=== PATIENT | female | born 1975 | race Hispanic/Latino ===

== ENCOUNTER → 2017-11-06 | Outpatient (CLI) | payer OTHER ==
--- NOTE | 2017-11-08 12:21 | MAM ---
EXAM DESCRIPTION: 3D Screening BILATERAL : Digital Mammography. CLINICAL HISTORY: 42 years Female SCREENING . Previous mammography. [place]. No complaints. No HRT. COMPARISON: None. No prior reports available. TECHNIQUE: Bilateral CC and MLO projection full-field images, 3-D tomosynthesis digital mammographic technique. Also bilateral synthesized CC/ MLO full-field images. CAD not utilized. FINDINGS: The breast parenchymal density pattern is: Heterogeneously dense breast tissue, which may obscure small masses. No skin thickening or nipple retraction focal asymmetry in the middle third of the upper-outer quadrant of the left breast at the 230 clock position approximately 6 cm from the nipple. No mass density or calcifications noted. Focal asymmetry in the upper outer quadrant of the middle third of the right breast approximately 6 cm from the nipple and 930-1000 clock position. No definite mass density seen and no calcifications. IMPRESSION: BI-RADS CATEGORY: 0 - INCOMPLETE- Need additional imaging evaluation. FOLLOW-UP: Recall for additional imaging: Bilateral 3-D tomosynthesis full field LM images and magnification CC 2-D images of the region of interest. Bilateral targeted breast ultrasound if indicated by follow-up diagnostic images.. Written communication concerning the IMPRESSION and Follow-up, will be mailed to the patient and referring health care provider. Electronically signed by: Colten Biggs MD 11/08/2017 12:19 PM CDT
== END ==
LOC: MAMMO 10:02
PROVIDERS: ATTEND Obstetrics & Gynecology
DX: Z12.31 Encounter for screening mammogram for malignant neoplasm of breast (principal)

== ENCOUNTER → 2017-11-16 | Outpatient (CLI) | payer OTHER ==
--- NOTE | 2017-11-17 15:17 | US ---
EXAM DESCRIPTION: Breast,Bilateral: Ultrasound CLINICAL HISTORY: 42 yearsFemaleABNORMAL MAMMO COMPARISON: Digital bilateral 3-D tomosynthesis diagnostic mammographic examination on this visit. TECHNIQUE: Transcutaneous scanning of the bilateral breasts utilizing two-dimensional and Doppler modes. Scanning performed by the rotary drill rig operator and Dr. Biggs. FINDINGS: Scanning of the right breast at the 1100 clock position 5 cm from the nipple. An oval-shaped hypoechoic object is noted with minimally lobulated murphy and what appears to be a hypoechoic or anechoic extension from the mass. Long axis is 7.9 mm. Not vascular. Parallel orientation with posterior enhancement features. Nonvascular. This could represent a reactive lymph node complicated cyst, or fibroadenoma. No abnormal solid mass, no simple cyst, no large calcifications, no parenchymal edema or skin changes. Scanning of the left breast at the 200 clock position 5 cm from the nipple. Elongated hypoechoic or anechoic structure measuring 4.9 x 4.2 mm, parallel orientation and posterior acoustic enhancement. Well marginated and not vascular. This could represent a dilated duct, small cyst, or lymph node. No abnormal solid mass, discrete cyst, large calcifications, or parenchymal edema. No overlying skin changes. IMPRESSION: 1. Bi-Rads Category 3: Probably Benign Findings. 2. Please refer to bilateral 3-D tomosynthesis diagnostic mammographic examination and report on this visit. The FINDINGS and the FOLLOW-UP plan were reviewed in person with the patient after the examination. Written communication explaining the IMPRESSION and FOLLOW-UP will be mailed to the patient and referring care provider. Electronically signed by: Colten Biggs MD 11/17/2017 3:16 PM CDT
--- NOTE | 2017-11-17 15:19 | MAM ---
EXAM DESCRIPTION: 3D Diagnostic, Bilateral: Digital Mammography CLINICAL HISTORY: 42 yearsFemaleABNORMAL MAMMOGRAM . Focal asymmetry bilaterally.. COMPARISON: 3-D tomosynthesis bilateral screening mammography 11/06/2017.. Bilateral targeted breast ultrasound on this visit. Report from prior examination also reviewed. TECHNIQUE: Bilateral LM projection full-field images, 3-D tomosynthesis digital mammographic technique. Also bilateral synthesized LM full-field images. Bilateral 2-D digital magnification in the LM and CC projections. On the 2-D images CAD was utilized. FINDINGS: The breast parenchymal density pattern is: Heterogeneously dense breast tissue, which may obscure small masses. No skin thickening or nipple retraction dense fibroglandular tissues predominantly in the central breasts. 3-D LM images and magnification images show no focal asymmetry. No focal, stellate mass or density, , and no suspicious microcalcifications bilaterally. ULTRASOUND: Scanning of the right breast at the 1100 clock position 5 cm from the nipple. An oval-shaped hypoechoic object is noted with minimally lobulated murphy and what appears to be a hypoechoic or anechoic extension from the mass. Long axis is 7.9 mm. Not vascular. Parallel orientation with posterior enhancement features. Nonvascular. This could represent a reactive lymph node complicated cyst, or fibroadenoma. No abnormal solid mass, no simple cyst, no large calcifications, no parenchymal edema or skin changes. Scanning of the left breast at the 200 clock position 5 cm from the nipple. Elongated hypoechoic or anechoic structure measuring 4.9 x 4.2 mm, parallel orientation and posterior acoustic enhancement. Well marginated and not vascular. This could represent a dilated duct, small cyst, or lymph node. No abnormal solid mass, discrete cyst, large calcifications, or parenchymal edema. No overlying skin changes. IMPRESSION: BI-RADS CATEGORY: 3 - PROBABLY BENIGN. Management: Short interval (6-month) follow-up right breast digital diagnostic mammography and targeted ultrasound. The FINDINGS and the FOLLOW-UP plan were reviewed in person with the patient after the examination. Written communication explaining the IMPRESSION and FOLLOW-UP will be mailed to the patient and referring care provider. Electronically signed by: Colten Biggs MD 11/17/2017 3:18 PM CDT
== END | disposition home or self-care (01) ==
LOC: MAMMO 10:02
PROVIDERS: ATTEND Obstetrics & Gynecology
DX: R92.8 Other abnormal and inconclusive findings on diagnostic imaging of breast (principal)
CPT/HCPCS: 76641; 77066; G0279

== ENCOUNTER → 2018-05-31 | Outpatient (CLI) | payer OTHER ==
--- NOTE | 2018-06-01 16:00 | US ---
EXAM DESCRIPTION: Breast,Right: Ultrasound CLINICAL HISTORY: 43 yearsFemaleABNORMAL MAMMO COMPARISON: Digital diagnostic tomosynthesis right breast on this visit. Bilateral ultrasound targeted breast 11/16/2017. TECHNIQUE: Transcutaneous scanning of the right breast utilizing langston-scale and Doppler modes. Scanning performed by the vacuum closing machine operator and Dr. Biggs. FINDINGS: Scanning of the upper outer quadrant of the right breast. Heterogeneous fibroglandular and fatty echotexture. Emphasis on the region 5 cm from the nipple. At the 11:00 position: Mostly anechoic oval object with echogenic murphy, circumscribed margins parallel orientation, and posterior enhancement features. At the 10:00 position 5 cm from the nipple is an oval-shaped hypoechoic mass with circumscribed margins, parallel orientation and posterior enhancement features. Dimensions are 8 x 8 mm. Stable size since the prior study. No new solid mass or distinct cyst. No parenchymal edema or large calcifications. No overlying skin changes. No abnormal vascularity. IMPRESSION: 1. Bi-Rads Category 3: Probably Benign Findings. 2. Please refer to diagnostic right breast digital tomosynthesis examination and report on this visit. The FINDINGS and the FOLLOW-UP plan were reviewed in person with the patient after the examination. Written communication explaining the IMPRESSION and FOLLOW-UP will be mailed to the patient and referring care provider. Electronically signed by: Colten Biggs MD 06/01/2018 3:58 PM CDT
--- NOTE | 2018-06-04 09:28 | MAM ---
EXAM DESCRIPTION: 3D Diagnostic, Right: Digital Mammography CLINICAL HISTORY: 43 yearsFemaleABNORMAL MAMMO 6 MONTH FOLLOW UP . Focal asymmetry upper outer quadrant anterior and mid right breast and mass seen on prior ultrasound right breast. COMPARISON: bilateral screening digital breast tomosynthesis 11/06/2017. Bilateral targeted breast ultrasound 11/16/2017. Right breast targeted ultrasound on this visit included with this examination. TECHNIQUE: Right breast CC LM MLO projection full-field images, digital mammographic tomosynthesis technique. Right breast full-field 2-D MLO image. CAD not utilized. FINDINGS: The breast parenchymal density pattern is: Heterogeneously dense breast tissue, which may obscure small masses. No skin thickening or nipple retraction focal asymmetry again noted in the upper outer quadrant of the right breast. Most noticeable at the 1030 clock position. No abnormal calcifications. No new focal, stellate mass or density, focal asymmetry , and no suspicious microcalcifications right breast. ULTRASOUND: Scanning of the upper outer quadrant of the right breast. Heterogeneous fibroglandular and fatty echotexture. Emphasis on the region 5 cm from the nipple. At the 11:00 position: Mostly anechoic oval object with echogenic murphy, circumscribed margins parallel orientation, and posterior enhancement features. At the 10:00 position 5 cm from the nipple is an oval-shaped hypoechoic mass with circumscribed margins, parallel orientation and posterior enhancement features. Dimensions are 8 x 8 mm. Stable size since the prior study. No new solid mass or distinct cyst. No parenchymal edema or large calcifications. No overlying skin changes. No abnormal vascularity. IMPRESSION: BI-RADS CATEGORY: 3 - PROBABLY BENIGN. Management: Short interval (6-month) follow-up ultrasound right breast, and diagnostic mammographic examination bilateral breasts, before or in November 2017. The FINDINGS and the FOLLOW-UP plan were reviewed in person with the patient after the examination. Written communication explaining the IMPRESSION and FOLLOW-UP will be mailed to the patient and referring care provider. Electronically signed by: Colten Biggs MD 06/04/2018 9:27 AM CDT
== END ==
LOC: MAMMO 10:15
PROVIDERS: ATTEND Family Medicine
DX: R92.8 Other abnormal and inconclusive findings on diagnostic imaging of breast (principal)
CPT/HCPCS: 76641; 77065; G0279

== ENCOUNTER 2018-08-02 14:16 | Emergency (ER) | payer OTHER ==
--- NOTE | 2018-08-02 14:24 | ED.PDOC ---
History of Present Illness - General Chief Complaint: Lower Extremity Injury Stated Complaint: lower extremity injury due to fall. Time Seen by Provider: 08/02/18 14:20 Source: patient, RN notes reviewed Exam Limitations: language barrier - translation provided by pt daughter per the patient's request. - History of Present Illness Initial Comments: The patient presents to the emergency department with complaint of right lower extremity pain. The patient was walking and tripped over a step at work which caused her to land onto her right knee as well as right calf. The patient also states that she injured her lower back as well as right hip due to this fall. The patient states she she did not strike her head as well as denies other injuries at this time. Occurred: yesterday Method of Injury: fell Improving Factors: rest Worsening Factors: movement Allergies/Adverse Reactions: Allergies NO KNOWN ALLERGY Allergy (Unverified 04/26/14 16:42) Home Medications: Ambulatory Orders Acetaminophen W/ Codeine [Tylenol W/ CODEINE #3] 1 ea PO Q6HR #12 08/02/18 Review of Systems - Review of Systems Review of Systems: 08/02/18 14:42 A 10 point review of systems was done at the patient's bedside and is negative except as noted in the patient's HPI Past Medical History (General) - Patient Medical History Hx Diabetes: No Family Medical History - Family History Mother Family History: Unknown Physical Exam - Physical Exam General Appearance: Alert, No apparent distress, Obese Eyes, Ears, Nose, Throat: PERRL/EOMI, normal ENT inspection Cardiovascular/Respiratory: regular rate, rhythm, no M/R/G Gastrointestinal/Abdominal: non-tender Back: other - THERE IS TTP OF THE L4/L5 AREA. THERE IS NO ECCHYMOSIS/ABRASIONS NOTED. Thigh/Hip: normal inspection, normal ROM, bone tenderness - +TTP OF THE RIGHT HIP NOTED. Leg: ecchymosis, limited ROM, swelling - IN THE REGION OF THE RIGHT CALF NOTED. THERE IS TTP IN THIS AREA NOTED., other - the patient is able to ambulate but there is a limp noted due to pain in the right knee. Knee: ecchymosis, pain, swelling - +IN THE RIGHT KNEE NOTED. 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 PROM INTACT BUT AROM DECREASED. Ankle: normal inspection, non-tender, no evidence of injury, normal ROM Foot: normal inspection, non-tender Neuro/Tendon: normal sensation Mental Status: alert, oriented x 3 Skin: warm/dry Progress - Progress Progress: 08/02/18 14:43 PATIENT PRESENTATION APPEARS TO BE CONSISTENT WITH INJURIES DUE TO TRAUMA. WILL ORDER IMAGING OF AREAS THAT WERE INJURED(PLAIN FILMS OF THE RIGHT KNEE/TIB/FIB/HIP AND LUMBAR SPINE) TO EVALUATE FOR EMERGENT PATHOLOGY IN THESE AREAS. IF NOTHING EMERGENT FOUND, DISPO WILL BE HOME. 08/02/18 15:51 The patient is doing well at this time. The patient has been advised that her x-rays are negative for fracture at this time. The patient was advised she will be placed into a knee immobilizer and given crutches and that she must follow up with her PCP and orthopedics for further evaluation and care of her injuries. The patient was advised to return to the ED if any concerns arise such as increased pain, numbness/tingling, weakness or other issues arise. It should be noted that the patient's daughter translated and relayed all information to the patient per the patient's request. 08/02/18 16:01 - EKG/XRAY/CT Xray Comments: X-ray of lumbar/ right hip/right knee/right tib-fibnegative for acute fx Departure - Departure Clinical Impression: Hip pain Qualifiers: Laterality: right Qualified Code(s): M25.551 - Pain in right hip Back pain Qualifiers: Back pain location: low back pain Chronicity: acute Back pain laterality: unspecified Sciatica presence: unspecified whether sciatica present Qualified Code(s): M54.5 - Low back pain Contusion, knee and lower leg Qualifiers: Encounter type: initial encounter Laterality: right Qualified Code(s): S80.01XA - Contusion of right knee, initial encounter Disposition: Discharge to Home or Self Care Condition: Fair Departure Forms: ED Discharge - Pt. Copy, Patient Portal Self Enrollment Instructions: DI for Knee Pain, DI for Leg Pain, Low Back Pain (DC) Activity: no exercise, no lifting, no pushing/pulling with affected limb Referrals: Alen Hawkins MD [Active Staff] - 1-5 Days (for evaluation and care of your hip and knee pain. ) Tamir Aguilar MD [Active Staff] - 1-2 Days (For recheck of your injuries. Return to the ED if any concerns arise such as increased pain, numbness/tingling, weakness or other issues arise.) Prescriptions: Acetaminophen W/ Codeine [Tylenol W/ CODEINE #3] 1 ea PO Q6HR #12 Home Medications: Ambulatory Orders Acetaminophen W/ Codeine [Tylenol W/ CODEINE #3] 1 ea PO Q6HR #12 08/02/18
[2018-08-02 14:38] VITALS: TEMP 98.9
[2018-08-02] MEDS ORDERED: HYDROcodone 10MG/APAP 325MG 1 EA TAB PO ONE (14:38)
--- NOTE | 2018-08-02 15:31 | RAD ---
EXAM DESCRIPTION: Tibia/Fibula,Right CLINICAL HISTORY: 43 years Female, FALL, PAIN COMPARISON: None available. FINDINGS: The visualized bones are well-mineralized.No acute fracture or dislocation. The soft tissues appear grossly unremarkable. IMPRESSION: No acute traumatic abnormality is noted in the right tibia and fibula. 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
--- NOTE | 2018-08-02 15:31 | RAD ---
EXAM DESCRIPTION: Knee,Right 2 or More Views CLINICAL HISTORY: 43 years Female, FALL, PAIN TECHNIQUE: 2 views of the right knee were performed. COMPARISON: None available. FINDINGS: The visualized bones appear well mineralized. No acute fracture or dislocation. No evidence of suprapatellar joint effusion. The soft tissues appear grossly unremarkable. IMPRESSION: No acute traumatic abnormality is noted in the right knee. Electronically signed by: Katerin Boles MD 08/02/2018 3:30 PM [facility]
--- NOTE | 2018-08-02 15:31 | RAD ---
EXAM DESCRIPTION: Hip,Right 2 Views CLINICAL HISTORY: 43 years Female, FALL, PAIN COMPARISON: None available. FINDINGS: The visualized bones are well-mineralized.No acute fracture or dislocation. Mild degenerative changes are identified. The soft tissues appear grossly unremarkable. IMPRESSION: Mild right hip osteoarthritis. Electronically signed by: Katerin Boles MD 08/02/2018 3:29 PM [facility]
--- NOTE | 2018-08-02 15:32 | RAD ---
EXAM DESCRIPTION: Lumbar Spine 3 Views CLINICAL HISTORY: 43 years Female, FALL, PAIN COMPARISON: None available. FINDINGS: Normal lordotic curvature of the lumbar spine is well preserved. The vertebral body heights are well-maintained with no acute compression deformity. Multilevel bilateral facet arthropathy is noted, worse at L5-S1 level. The intervertebral disc spaces are well preserved. No evidence of spondylolysis or spondylolisthesis. The visualized prevertebral and paravertebral soft tissues appear grossly unremarkable. IMPRESSION: Multilevel bilateral facet arthropathy is noted, worse at L5-S1 level. Electronically signed by: Katerin Boles MD 08/02/2018 3:31 PM [facility]
[2018-08-02 16:39] VITALS: BP 110/71; O2SAT 99
== END 2018-08-02 16:20 | disposition home or self-care (01) ==
LOC: ER 14:16
DX: S80.01XA Contusion of right knee, initial encounter (principal); M54.5 Low back pain; M25.551 Pain in right hip; W10.9XXA Fall (on) (from) unspecified stairs and steps, initial encounter; Y92.69 Other specified industrial and construction area as the place of occurrence of the external cause; Y99.0 Civilian activity done for income or pay; Y93.01 Activity, walking, marching and hiking

== ENCOUNTER → 2019-02-04 | Outpatient (CLI) | payer OTHER ==
--- NOTE | 2019-02-05 10:25 | MAM ---
EXAM DESCRIPTION: Breast,Bilateral (accession [id number]), 3D Diagnostic, Bilateral (accession [id number]): Ultrasound CLINICAL HISTORY: 43 yearsFemale6 [place] F/U COMPARISON: Diagnostic right breast digital tomosynthesis 05/31/2018. Bilateral diagnostic digital breast tomosynthesis 11/16/2017. Screening digital breast tomosynthesis 11/06/2017 TECHNIQUE: Bilateral CC, MLO, and LM projection full-field images, digital mammographic tomosynthesis technique. Bilateral 2-D digital full-field MLO images. CAD not available . Transcutaneous scanning of the bilateral breast utilizing langston-scale and Doppler modes. Scanning performed by the director design and Dr. Biggs. FINDINGS: The breast parenchymal density pattern is: Heterogeneously dense breast tissue, which may obscure small masses. Extremely dense breast tissue, which lowers the sensitivity of mammography. No skin thickening or nipple retraction No new focal, stellate mass or density, focal asymmetry , and no suspicious microcalcifications bilaterally. Ultrasound: Scanning of the right breast lower outer quadrant. Emphasis on 10:00 region, 5 cm from the nipple. Mixture of fibroglandular and fatty echotextures. Hypoechoic versus anechoic object measuring 6.8 x 5.4 mm. Circumscribed margins with minimal lobulation, wider than tall orientation. Predominantly posterior echo enhancement. Nonvascular. Stable since the prior study. Scanning at the 11:00 position 5 cm from the nipple. Round anechoic structure circumscribed margins posterior acoustic enhancement. 4.2 mm structure consistent with a cyst with no vascularity. Left breast shows equal distribution of fibroglandular/fibrocystic tissues and fibroglandular tissues. 2 cysts are located at the 2:00 position 3 cm from the nipple measuring 5.2 mm and 4.3 mm. Not vascular. No dominant soft tissue mass, parenchymal edema, or calcifications. IMPRESSION: BI-RADS CATEGORY: 3 - PROBABLY BENIGN. Management: Short interval (6-month) diagnostic digital mammography and targeted ultrasound of the right breast.. The FINDINGS and the FOLLOW-UP plan were reviewed in person with the patient after the examination. Written communication explaining the IMPRESSION and FOLLOW-UP will be mailed to the patient and referring care provider. Electronically signed by: Colten Biggs MD 02/05/2019 10:23 AM [facility]
== END ==
LOC: MAMMO 09:17
PROVIDERS: ATTEND Obstetrics & Gynecology
DX: R92.8 Other abnormal and inconclusive findings on diagnostic imaging of breast (principal)
CPT/HCPCS: 76641; 77066; G0279

== ENCOUNTER 2019-03-11 13:02 | Emergency (ER) | payer OTHER ==
--- NOTE | 2019-03-11 15:32 | ED.PDOC ---
History of Present Illness - General Chief Complaint: Trauma Stated Complaint: fall Time Seen by Provider: 03/11/19 15:20 Source: patient Exam Limitations: no limitations - History of Present Illness Initial Comments: Isaura Rodriguez 43 y/o female stated while cleaning the floor at work today slipped and fell on her back then had dull low back pain and pain pelvis.NO HEAD INJURY,NO NECK PAIN,NO HIP PAIN.NO bowel or bladder dysfunction. Timing/Duration: 1-3 hours Quality/Severity: dullness Back Pain Location: lumbar spine Back Pain Radiation: buttocks Method of Injury/Prior Injury: fell Improving Factors: rest Worsening Factors: movement Allergies/Adverse Reactions: Allergies NO KNOWN ALLERGY Allergy (Verified 03/11/19 13:55) Home Medications: Ambulatory Orders Acetaminophen W/ Codeine [Tylenol W/ CODEINE #3] 1 ea PO Q6HR #12 08/02/18 RX: Metformin HCl [Metformin Hydrochloride] 500 mg PO BID 08/02/18 Acetaminophen W/ Codeine [Tylenol/Codeine #4 300-60 mg] 1 ea PO Q4HR PRN #14 tab 03/11/19 Review of Systems - Review of Systems Musculoskeletal: States: see HPI, back pain Endocrine: States: no symptoms reported Past Medical History (General) - Patient Medical History Hx Asthma: No Hx Congestive Heart Failure: No Hx Diabetes: Yes Surgical History: other - - Vaccination History Hx Tetanus, Diphtheria Vaccination: No Hx Influenza Vaccination: No Hx Pneumococcal Vaccination: No - Social History Hx Tobacco Use: No Hx Alcohol Use: Yes - socially - Female History Patient is a Female of Child Bearing Age (10 -59 yrs old): Yes Hx Last Menstrual Period: 02/15/19 Patient : No Family Medical History - Family History Mother Family History: Unknown Hx Family Diabetes: Yes - mom Hx Family Cancer: Yes - dad-lungs Physical Exam - Physical Exam General Appearance: Alert, Comfortable, No apparent distress Eyes, Ears, Nose, Throat Exam: normal ENT inspection Neck Exam: normal alignment, normal inspection Cardiovascular/Respiratory: regular rate, rhythm, normal peripheral pulses, normal breath sounds Gastrointestinal/Abdominal: non tender, soft Back Exam: normal inspection, no CVA tenderness, muscle spasm - lumbar spine muscle Extremity Exam: non-tender, no pedal edema Neurologic: no motor/sensory deficits, alert, oriented x 3 Skin Exam: normal color, warm/dry Progress - Progress Progress: 03/11/19 15:35 Vital Signs - 8 hr 03/11/19 03/11/19 13:40 14:02 Temperature 97.3 F L Pulse Rate [ 68 61 pulse ox] Respiratory 16 18 Rate Blood Pressure 94/50 94/50 [Right Arm] O2 Sat by Pulse 99 100 Oximetry - EKG/XRAY/CT XRAY: pelvis - and lumbar spine-no fracture Departure - Departure Clinical Impression: Lumbar back sprain Qualifiers: Encounter type: initial encounter Qualified Code(s): S33.5XXA - Sprain of ligaments of lumbar spine, initial encounter Fall Qualifiers: Encounter type: initial encounter Qualified Code(s): W19.XXXA - Unspecified fall, initial encounter Time of Disposition: 16:01 Disposition: Discharge to Home or Self Care Condition: Fair Departure Forms: ED Discharge - Pt. Copy, Patient Portal Self Enrollment Instructions: Low Back Pain (DC) Referrals: KLAUDIA ZAMUDIO [Primary Care Provider] - 1-2 Weeks Prescriptions: Acetaminophen W/ Codeine [Tylenol/Codeine #4 300-60 mg] 1 ea PO Q4HR PRN #14 tab PRN Reason: Pain Home Medications: Ambulatory Orders Acetaminophen W/ Codeine [Tylenol W/ CODEINE #3] 1 ea PO Q6HR #12 08/02/18 RX: Metformin HCl [Metformin Hydrochloride] 500 mg PO BID 08/02/18 Acetaminophen W/ Codeine [Tylenol/Codeine #4 300-60 mg] 1 ea PO Q4HR PRN #14 tab 03/11/19 Additional Instructions: follow up with primary Md as needed for recheck;off for 2 days March 12-2018;May return to regular work 14 Mar 2019
[2019-03-11] MEDS ORDERED: ORPHENADRINE CITRATE 30 MG/ML AMP IM ONE (15:35)
[2019-03-11] MEDS ORDERED: KETOROLAC TROMETHAMINE INJ 30 MG/ML VIAL IM ONE (15:35)
--- NOTE | 2019-03-11 15:56 | RAD ---
PROVIDED CLINICAL HISTORY/REASON FOR EXAM: fall Findings: Number of images: 3 Location: Lumbar spine Five lumbar type vertebral bodies. No acute fracture or subluxation. Vertebral body heights are maintained. Soft tissues are unremarkable. No significant degenerative disc disease. Large colonic stool volume. Nonobstructive bowel gas pattern. IMPRESSION: No evidence of acute process in the lumbar spine. Electronically signed by: Lb Kinney MD 03/11/2019 3:55 PM CDT
--- NOTE | 2019-03-11 15:57 | RAD ---
PROVIDED CLINICAL HISTORY/REASON FOR EXAM: fall Findings: Number of images: Two Location: Pelvis No acute fracture or dislocation. No focal soft tissue swelling. Joint spaces are maintained. Normal bone mineralization. IMPRESSION: Unremarkable pelvic radiographs. Electronically signed by: Lb Kinney MD 03/11/2019 3:55 PM CDT
[2019-03-11 16:42] VITALS: BP 108/74; TEMP 98; O2SAT 100
== END 2019-03-11 16:40 | disposition home or self-care (01) ==
LOC: ER 13:02
DX: S33.5XXA Sprain of ligaments of lumbar spine, initial encounter (principal); E11.9 Type 2 diabetes mellitus without complications; W01.0XXA Fall on same level from slipping, tripping and stumbling without subsequent striking against object, initial encounter; Y99.0 Civilian activity done for income or pay; Y92.69 Other specified industrial and construction area as the place of occurrence of the external cause; Z79.84 Long term (current) use of oral hypoglycemic drugs
CPT/HCPCS: 72100; 72190; J1885; J2360

== ENCOUNTER 2019-12-19 18:38 | Emergency (ER) | payer OTHER ==
[2019-12-19 19:37] VITALS: BP 103/77
--- NOTE | 2019-12-19 19:40 | RAD ---
EXAM DESCRIPTION: Knee,Left Complete CLINICAL HISTORY: 44 years Female fall at work, left knee cap pain COMPARISON: None TECHNIQUE: Three view study of the left knee was performed. FINDINGS: No fracture seen. Normal bony mineralization. No erosive or lytic lesions seen. IMPRESSION: No acute fracture or dislocation seen. Electronically signed by: Kristen Tolbert MD 12/19/2019 7:38 PM CDT
--- NOTE | 2019-12-19 19:58 | ED.PDOC ---
History of Present Illness - General Chief Complaint: Lower Extremity Injury Stated Complaint: left knee pain Time Seen by Provider: 12/19/19 18:40 Source: patient Exam Limitations: no limitations - History of Present Illness Initial Comments: Patient is a 44-year-old female presented emergency room after having slipped and fallen at work at around 10 AM this morning. She has an abrasion over the patella on her left knee and pain is localized over the patella. No pain over the lateral or posterior aspects. No evidence of any ligamentous injury. No difficulty with extension at the knee. She reports that the knee feels full and pressure. Timing/Duration: 4-6 hours Severity: moderate Improving Factors: nothing Worsening Factors: movement Associated Symptoms: denies symptoms Allergies/Adverse Reactions: Allergies NO KNOWN ALLERGY Allergy (Verified 12/19/19 19:04) Home Medications: Ambulatory Orders Metformin HCl [Metformin Hydrochloride] 500 mg PO BID 08/02/18 Review of Systems - Review of Systems Constitutional: States: no symptoms reported EENTM: States: no symptoms reported Respiratory: States: no symptoms reported Cardiology: States: no symptoms reported Gastrointestinal/Abdominal: States: no symptoms reported Genitourinary: States: no symptoms reported Musculoskeletal: States: see HPI Skin: States: no symptoms reported Neurological: States: no symptoms reported Endocrine: States: no symptoms reported All other Systems: No Change from Baseline Past Medical History (General) - Patient Medical History Hx Asthma: No Hx Congestive Heart Failure: No Hx Diabetes: Yes Surgical History: no surgical history - Vaccination History Hx Tetanus, Diphtheria Vaccination: No Hx Influenza Vaccination: No Hx Pneumococcal Vaccination: No - Social History Hx Tobacco Use: No Hx Alcohol Use: Yes - socially - Activities of Daily Living Hospice Agency (if applicable):: None - Female History Patient is a Female of Child Bearing Age (10 -59 yrs old): Yes Hx Last Menstrual Period: 02/15/19 Patient : No - Triage Comment ED Triage Comment: pt voices pain to left kneecap after falling at work while working. pt voices pain is worse when she walks and puts pressure on knee Family Medical History - Family History Mother Family History: Unknown Hx Family Diabetes: Yes - mom Hx Family Cancer: Yes - dad-lungs Physical Exam - Physical Exam General Appearance: Alert, Comfortable, No apparent distress Eye Exam: bilateral normal Ears, Nose, Throat: hearing grossly normal Neck: full range of motion, supple Respiratory: no respiratory distress, no accessory muscle use Cardiovascular/Chest: normal peripheral pulses, no edema Peripheral Pulses: radial,right: 2+, radial,left: 2+ Rectal Exam: deferred Extremity: normal range of motion, no pedal edema, no calf tenderness, normal capillary refill, other - See history of present illness. 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 She sustained an abrasion over the kneecap and is having some mild swelling as a result. Ligament exam appears benign clinically. X-ray of the knee shows no evidence of any acute injury. The patient will likely have some soreness and mild swelling for the next 2 to 3 weeks. Motrin can be used for discomfort. Ambulate carefully as the soreness can make her more likely to fall. ER warnings are given. beatriz cage [id number] Departure - Departure Clinical Impression: Contusion of knee Qualifiers: Encounter type: initial encounter Laterality: left Qualified Code(s): S80.02XA - Contusion of left knee, initial encounter Disposition: Discharge to Home or Self Care Condition: Fair Departure Forms: ED Discharge - Pt. Copy, Patient Portal Self Enrollment Instructions: DI for Knee Pain Diet: regular diet Activity: increase activity as tolerated Referrals: KLAUDIA ZAMUDIO [Primary Care Provider] - 1-2 Weeks Home Medications: Ambulatory Orders Metformin HCl [Metformin Hydrochloride] 500 mg PO BID 08/02/18 Additional Instructions: The patient is a 44-year-old female presented to emergency room after having fallen at work at around 10 AM this morning. She sustained an abrasion over the kneecap and is having some mild swelling as a result. Ligament exam appears benign clinically. X-ray of the knee shows no evidence of any acute injury. The patient will likely have some soreness and mild swelling for the next 2 to 3 weeks. Motrin can be used for discomfort. Ambulate carefully as the soreness can make her more likely to fall. ER warnings are given. Print Language: Italian
[2019-12-19 20:16] VITALS: TEMP 98.3; O2SAT 98
== END 2019-12-19 20:16 | disposition home or self-care (01) ==
LOC: ER 18:38
DX: S80.02XA Contusion of left knee, initial encounter (principal); W01.0XXA Fall on same level from slipping, tripping and stumbling without subsequent striking against object, initial encounter; E11.9 Type 2 diabetes mellitus without complications; Y92.9 Unspecified place or not applicable; Y99.0 Civilian activity done for income or pay

== ENCOUNTER 2020-06-29 10:46 | Emergency (ER) | payer BC, OTHER ==
[2020-06-29] MEDS ORDERED: SODIUM CHLORIDE 0.9% (FLUSH) 10 ML SYG IV PRN ×2 (11:10→13:05)
[2020-06-29] MEDS ORDERED: MORPHINE SULFATE INJ 10 MG/ML VIAL IV ONE (11:13)
[2020-06-29] MEDS ORDERED: ONDANSETRON INJ 4 MG/2 ML VIAL IV ONE (11:13)
--- NOTE | 2020-06-29 11:40 | RAD ---
EXAM DESCRIPTION: Chest,1 View CLINICAL HISTORY: 45 years Female, chest pain COMPARISON: April 26, 2014 Findings: One view(s)/radiograph(s) Low lung volumes. Cardiac silhouette and pulmonary vasculature are within normal limits. No pneumothorax. No pleural effusion. Patchy airspace opacities in the right lung. No acute osseous abnormality. IMPRESSION: Patchy airspace opacities in the right lung which may reflect pulmonary edema or pneumonia. Electronically signed by: Lb Kinney MD 06/29/2020 11:38 AM [facility]
[2020-06-29] MEDS ORDERED: IBUPROFEN 200 MG TAB PO ONE (12:58)
[2020-06-29] MEDS ORDERED: SODIUM CHLORIDE 0.9% 1000ML 1,000 ML IVS ONE (13:05)
[2020-06-29 14:03] VITALS: BP 110/72; O2SAT 98
--- NOTE | 2020-06-29 14:39 | ED.PDOC ---
History of Present Illness - General Chief Complaint: Fever Stated Complaint: cough and congestion, fever since sat Time Seen by Provider: 06/29/20 11:10 Source: patient, RN notes reviewed, Vital Signs reviewed Exam Limitations: no limitations - History of Present Illness Initial Comments: Patient is a 45-year-old female who presents with complaints of chest pain, sharp and stabbing in nature, central, worse with deep inspiration, better with shallow breathing, moderate in intensity, nonradiating x2 days. Patient has had fever and cough x2 days. The cough is nonproductive. Unknown if she has had exposure to Covid. Timing/Duration: other - 2 days Severity: moderate Improving Factors: rest Worsening Factors: movement Associated Symptoms: chest pain, cough, fever/chills, malaise, shortness of breath Allergies/Adverse Reactions: Allergies NO KNOWN ALLERGY Allergy (Verified 12/19/19 19:04) Home Medications: Ambulatory Orders Metformin HCl [Metformin Hydrochloride] 500 mg PO BID 08/02/18 Azithromycin [Zithromax Z-Real] 250 mg PO DAILY #6 tab 06/29/20 Guaifenesin-Codeine [Guaifenesin AC] 10 ml PO Q6H PRN #120 ml 06/29/20 Methylprednisolone [Medrol Dose Real] 4 mg PO DAILY 6 Days #21 tab 06/29/20 Review of Systems - Review of Systems Constitutional: States: see HPI, chills, fever, malaise, weakness EENTM: States: no symptoms reported. Denies: eye pain, blurred vision, double vision Respiratory: States: see HPI, cough, short of breath. Denies: stridor, wheezing Cardiology: States: see HPI, chest pain. Denies: palpitations, syncope Gastrointestinal/Abdominal: States: no symptoms reported. Denies: abdominal pain, diarrhea, nausea, vomiting Genitourinary: States: no symptoms reported. Denies: dysuria, frequency Musculoskeletal: States: no symptoms reported. Denies: back pain, joint pain, neck pain Skin: States: no symptoms reported. Denies: change in color, rash Neurological: States: see HPI, weakness. Denies: headache, numbness, paresthesia, tingling, tremors Endocrine: States: no symptoms reported. Denies: increased hunger, increased thirst, increased urine Hematologic/Lymphatic: States: no symptoms reported All other Systems: Reviewed and Negative Past Medical History (General) - Patient Medical History Hx Seizures: No Hx Stroke: No Hx Dementia: No Hx Asthma: No Hx of COPD: No Hx Cardiac Disorders: No Hx Congestive Heart Failure: No Hx Pacemaker: No Hx Hypertension: No Hx Thyroid Disease: No Hx Diabetes: Yes Hx Gastroesophageal Reflux: No Hx Renal Disease: No Hx Cancer: No Hx of HIV: No Hx Hepatitis C: No Hx MRSA: No - Vaccination History Hx Tetanus, Diphtheria Vaccination: Yes Hx Influenza Vaccination: Yes Hx Pneumococcal Vaccination: Yes Immunizations Up to Date: No - Social History Hx Tobacco Use: No Hx Chewing Tobacco Use: No Hx Alcohol Use: No Hx Substance Use: No Hx Substance Use Treatment: No Hx Depression: No Feels Threatened In a Relationship: No Hx Physical Abuse: No Hx Emotional Abuse: No Hx Suspected Abuse: No - Female History Patient is a Female of Child Bearing Age (10 -59 yrs old): No Hx Last Menstrual Period: 02/15/19 Patient : No Family Medical History - Family History Mother Family History: Unknown Hx Family Diabetes: Yes - mom Hx Family Cancer: Yes - dad-lungs Physical Exam - Physical Exam General Appearance: Alert, Anxious, Obvious distress, Well Developed, Well Groomed, Well Nourished Eye Exam: bilateral normal Ears, Nose, Throat: hearing grossly normal, normal pharynx Neck: non-tender, full range of motion, supple Respiratory: no respiratory distress, no accessory muscle use, rhonchi - Diffusely throughout, other - Tender to palpation along the left sternal border. 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 06/29/20 14:41 Patient is positive for Covid. Additionally, her chest x-ray appears to have possible pneumonia. Plan on discharge home with prescription for Decadron and for azithromycin. Additionally I will send patient home with some cough syrup. I discussed this plan of care with the patient she voices understanding and agreement with the plan of care. Pepito Perez M.D. #[id number] - Results/Orders Results/Orders: 06/29/20 11:10 IV Care:Saline Lock per Protoc QSHIFT Telemetry ONCE Sodium Chloride 0.9% (Flush) [Saline Flush Syringe] 3 ml IV PRN PRN 06/29/20 11:15 EKG STAT 06/29/20 13:05 IV Care:Saline Lock per Protoc QSHIFT Sodium Chloride 0.9% (Flush) [Saline Flush Syringe] 10 ml IV PRN PRN URINALYSIS Stat 06/29/20 13:06 Hold Metformin x 48Hrs [id number] 06/30/20 09:00 Pulse Ox Daily Laboratory Results - last 24 hr 06/29/20 06/29/20 06/29/20 11:05 11:09 12:15 WBC 4.3 L RBC 4.41 Hgb 11.9 L Hct 35.7 L MCV 80.9 L MCH 26.9 L MCHC 33.3 RDW 15.1 H Plt Count 176 MPV 8.2 Absolute Neuts (auto) 2.90 Absolute Lymphs (auto) 1.00 Absolute Monos (auto) 0.30 Absolute Eos (auto) 0.00 Absolute Basos (auto) 0.00 Neutrophils % 69.2 Lymphocytes % 22.9 Monocytes % 7.2 Eosinophils % 0.5 L Basophils % 0.2 PT 9.4 INR < 1.00 PTT (SP) 30.7 Sodium 136 Potassium 3.9 Chloride 102 Carbon Dioxide 22 Anion Gap 15.9 BUN 10 Creatinine 0.48 L BUN/Creatinine Ratio 20.8 H POC Glucose 103 Random Glucose 111 H Serum Osmolality 271.7 L Calcium 8.6 Magnesium 2.0 Total Bilirubin 0.4 Direct Bilirubin 0.1 Indirect Bilirubin 0.3 AST 36 ALT 35 Alkaline Phosphatase 96 Creatine Kinase 46 CK-MB (CK-2) 0.3 CK-MB (CK-2) % Not Reportable Troponin I < 0.02 B-Natriuretic Peptide < 15.0 Serum Total Protein 8.5 H Albumin 4.1 Urine Color Yellow Urine Appearance Cloudy Urine pH 5.5 Ur Specific [place] 1.025 Urine Protein 30 Urine Glucose (UA) Negative Urine Ketones Negative Urine Blood Moderate H Urine Nitrite Negative Urine Bilirubin Negative Urine Urobilinogen 0.2 Ur Leukocyte Esterase Small H Urine RBC 3-5 H Urine WBC 5-10 H Ur Epithelial Cells 30-40 Amorphous Sediment 1+ Urine Bacteria 2+ H EXAM DESCRIPTION: Chest,1 View CLINICAL HISTORY: 45 years Female, chest pain COMPARISON: April 26, 2014 Findings: One view(s)/radiograph(s) Low lung volumes. Cardiac silhouette and pulmonary vasculature are within normal limits. No pneumothorax. No pleural effusion. Patchy airspace opacities in the right lung. No acute osseous abnormality. IMPRESSION: Patchy airspace opacities in the right lung which may reflect pulmonary edema or pneumonia. Electronically signed by: Lb Kinney MD 06/29/2020 11:38 AM EKG performed on 29 June 2020 at 1055 hrs.: Sinus tachycardia 106 bpm, normal axis deviation, no ST or T wave changes, otherwise normal EKG. No comparison EKG available at this time. Covid: Positive Vital Signs 06/29/20 06/29/20 06/29/20 11:07 11:08 12:00 Temperature 100.7 F H Pulse Rate [ 101 H 122 H 101 H Left] Respiratory 20 22 20 Rate Blood Pressure 123/81 101/62 [Left Arm] O2 Sat by Pulse 97 94 L Oximetry 06/29/20 06/29/20 13:00 14:00 Temperature 101.3 F H Pulse Rate [ 98 H 90 Left] Respiratory 16 14 Rate Blood Pressure 116/74 110/72 [Left Arm] O2 Sat by Pulse 95 98 Oximetry Departure - Departure Clinical Impression: COVID-19 Pneumonia Qualifiers: Pneumonia type: due to unspecified organism Laterality: unspecified laterality Lung location: unspecified part of lung Qualified Code(s): J18.9 - Pneumonia, unspecified organism Time of Disposition: 14:47 Disposition: Discharge to Home or Self Care Condition: Good Departure Forms: ED Discharge - Pt. Copy, Patient Portal Self Enrollment Instructions: Pneumonia, Adult (DC), Coronavirus Disease 2019 (COVID-19) Diet: resume usual diet Activity: increase activity as tolerated Referrals: KLAUDIA ZAMUDIO [Primary Care Provider] - 1-5 Days Prescriptions: Guaifenesin-Codeine [Guaifenesin AC] 10 ml PO Q6H PRN #120 ml PRN Reason: Cough Methylprednisolone [Medrol Dose Real] 4 mg PO DAILY 6 Days #21 tab Azithromycin [Zithromax Z-Real] 250 mg PO DAILY #6 tab Home Medications: Ambulatory Orders Metformin HCl [Metformin Hydrochloride] 500 mg PO BID 08/02/18 Azithromycin [Zithromax Z-Real] 250 mg PO DAILY #6 tab 06/29/20 Guaifenesin-Codeine [Guaifenesin AC] 10 ml PO Q6H PRN #120 ml 06/29/20 Methylprednisolone [Medrol Dose Real] 4 mg PO DAILY 6 Days #21 tab 06/29/20
[2020-06-29 15:01] VITALS: TEMP 99
== END 2020-06-29 15:00 | disposition home or self-care (01) ==
LOC: ER 10:46
DX: U07.1 COVID-19 (principal); J12.89 Other viral pneumonia; R07.9 Chest pain, unspecified; R00.0 Tachycardia, unspecified; E11.9 Type 2 diabetes mellitus without complications; Z79.84 Long term (current) use of oral hypoglycemic drugs; Z79.899 Other long term (current) drug therapy
CPT/HCPCS: 36415; 71045; 80048; 80076; 81001; 82550; 82553; 82948; 83880; 84484; 85025; 85610; 85730; 87635; 93005; A4216; J2270; J2405; J7030